=== PATIENT | female | born 1970 | race Caucasian/White ===

== ENCOUNTER 2023-06-30 15:07 | Emergency (ER) | payer OTHER, MEDICAID, SELFPAY ==
[2023-06-30 15:25] VITALS: BP 205/134; PULSE 98; RESP 16; TEMP 36.7; O2SAT 98; BMI 26.6
--- NOTE | 2023-06-30 16:35 | ED_ITS ---
HPI - Extremity Problem <Toni Lind PA-C - Last Filed: 06/30/23 16:45> General Chief complaint: Extremity Problem,Nontraumatic Stated complaint: lt hand, thinks she has a clot Time Seen by Provider: 06/30/23 16:11 Source: patient Mode of arrival: Ambulatory History of Present Illness HPI Narrative: 53-year-old female with hypertension presents to the ED with left wrist and forearm pain for 5 days. Patient states that she has been recently sick, sleeping in a recliner, suspects that she might have slept on her left arm. Patient states that she was concerned that she might have a blood clot based on looking on the Internet. Patient denies numbness, tingling, weakness. Patient denies any trauma. Related Data Previous Rx's Medication Instructions Recorded codeine 10 mg-guaifenesin 100 mg/5 5 ml PO Q4HP PRN #120 mL 09/14/16 mL oral liquid (Cheratussin AC) Allergies Allergy/AdvReac Type Severity Reaction Status Date / Time ketorolac [From TORADOL] Allergy Intermediate RED RASH Unverified 12/02/17 13:03 AND SWELLING Review of Systems <Toni Lind PA-C - Last Filed: 06/30/23 16:45> Constitutional Constitutional: Denies chills, Denies fatigue, Denies fever(s), Denies frequent falls, Denies lethargy and Denies weakness Eyes Eyes: Denies change in vision, Denies eye discharge, Denies irritation and Denies loss of vision ENT Ears, Nose, Mouth, and Throat: Denies change in voice, Denies dizziness, Denies neck pain, Denies sore throat and Denies throat swelling Cardiovascular Cardiovascular: Denies chest pain, Denies irregular heart rhythm, Denies lightheadedness, Denies palpitations, Denies dyspnea, Denies dyspnea on exertion and Denies orthopnea Respiratory Respiratory: Denies cough, Denies dyspnea, Denies dyspnea on exertion and Denies wheezing Gastrointestinal Gastrointestinal: Denies abdominal pain, Denies change in bowel habits, Denies diarrhea, Denies nausea and Denies vomiting Musculoskeletal Musculoskeletal: Denies neck pain and Denies numbness Comments: Left forearm, wrist pain Integumentary/Breasts Skin/Breast: Denies pruritus, Denies erythema, Denies rash and Denies wounds Neurologic Neurologic: Denies behavioral changes, Denies confusion, Denies dizziness, Denies frequent falls, Denies loss of vision, Denies numbness and Denies weakness Psychiatric Psychiatric: Denies anxiety, Denies behavioral changes, Denies confusion, Denies depression, Denies homicidal ideation and Denies suicidal ideation Endocrine Endocrine: Denies fatigue, Denies flushing and Denies palpitations Hematologic/Lymphatic Hematologic/Lymphatic: Denies easy bruising Allergic/Immunologic Allergic/Immunologic: Denies urticaria, Denies throat swelling and Denies wheezing Patient History <Toni Lind PA-C - Last Filed: 06/30/23 16:45> Social History Smoking Status: Current every day smoker Smoking Status: Current every day smoker tobacco type: cigarettes Substance Use Type: does not use Exam <Toni Lind PA-C - Last Filed: 06/30/23 16:45> Narrative Exam Narrative: Const General:?cooperative, healthy appearing and comfortable [facility] Head:?normal to inspection Ears:?hearing grossly normal bilaterally Nose:?external nose normal Face and sinus:?normal facial exam and sinuses nontender Mouth:?oral mucosae normal Throat:?posterior oropharynx normal Eyes General:?appearance normal, both eyes and all related structures Neck Neck:?normal visual inspection and no lymphadenopathy noted Resp Effort & Inspection:?normal respiratory effort Auscultation:?clear to auscultation bilaterally Cardio Rate:?regular rate Rhythm:?regular rhythm Musculoskeletal No erythema, swelling, tenderness to palpation, bruising, deformities noted on exam. Compartments are soft. There is full range of motion. Strength and sensation is intact. Patient is neurovascularly intact. Neuro General:?patient alert, patient awake and patient oriented x3 Initial Vital Signs Initial Vital Signs: Vital Signs Temperature 98.1 F 06/30/23 15:25 Pulse Rate 98 H 06/30/23 15:25 Respiratory Rate 16 06/30/23 15:25 Blood Pressure 205/134 H 06/30/23 15:25 Pulse Oximetry 98 06/30/23 15:25 Oxygen Delivery Method Room Air 06/30/23 15:25 <Lis Landis DO - Last Filed: 07/08/23 00:44> Initial Vital Signs Initial Vital Signs: Vital Signs Temperature 98.1 F 06/30/23 15:25 Pulse Rate 98 H 06/30/23 15:25 Respiratory Rate 16 06/30/23 15:25 Blood Pressure 205/134 H 06/30/23 15:25 Pulse Oximetry 98 06/30/23 15:25 Oxygen Delivery Method Room Air 06/30/23 15:25 Course <Toni Lind PA-C - Last Filed: 06/30/23 16:45> Vital Signs Vital signs: Vital Signs - 8 hr 06/30/23 15:25 Temperature 98.1 F Pulse Rate 98 H Respiratory Rate 16 Blood Pressure 205/134 H Pulse Oximetry 98 Oxygen Delivery Method Room Air <Lis Koby Landis DO - Last Filed: 07/08/23 00:44> Vital Signs Vital signs: Vital Signs - 8 hr 06/30/23 15:25 Temperature 98.1 F Pulse Rate 98 H Respiratory Rate 16 Blood Pressure 205/134 H Pulse Oximetry 98 Oxygen Delivery Method Room Air MDM - Extremity (Nontraumatic) <Toni Lind PA-C - Last Filed: 06/30/23 16:45> MDM Narrative Medical decision making narrative: 53-year-old female with hypertension presents to the ED with left wrist and forearm pain for 5 days. History and physical exam is most consistent with a musculoskeletal sprain/strain from sleeping on that arm. Patient is neurovascularly intact with good range of motion. Recommend lidocaine patches, heat packs, Advil cause symptom relief. Recommend follow-up with the PCP as soon as possible. Patient has had an elevated blood pressure for some time now according to the patient and is not on any medications. Recommend follow-up with PCP for further evaluation. ED return precautions discussed with patient. Patient verbalized understanding. Medical records reviewed: Yes Discharge Plan Departure Patient Disposition: Home Clinical Impression: Arm pain Qualifiers: Laterality: left Qualified Code(s): M79.602 - Pain in left arm Instructions: DI for Arm Pain Activity Restrictions/Additional Instructions: You were evaluated in the ED today for left arm pain. It appears that your pain is from a musculoskeletal sprain/strain from sleeping on it. You may apply lidocaine patches, take Advil 600 mg 3 times a day with food, apply heat packs. Please follow-up with your PCP as soon as possible. Return to the ED if your worsening symptoms, numbness, tingling, weakness. Prescriptions: No Action codeine-guaifenesin [Cheratussin AC] 118 ML liquid 5 ml PO Q4HP PRNQty: 120 0RF Stand Alone Forms: Patient Portal/API ED Sign-out <Lis Landis, - Last Filed: 07/08/23 00:44> Cosign ED Attending Cosignature Attestation: I was immediately available in the department for consultation.
[2023-06-30 16:50] VITALS: BP 182/121; PULSE 91; RESP 18; O2SAT 99
== END 2023-06-30 16:51 | disposition home or self-care (01) ==
PROVIDERS: Emergency Provider Student in an Organized Health Care Education/Training Program
DX: M25.532 Pain in left wrist (principal); M79.632 Pain in left forearm
CPT/HCPCS: 99281; 99282

== ENCOUNTER 2024-08-07 16:22 | Emergency (ER) | payer OTHER, SELFPAY ==
[2024-08-07] VITALS (7 sets, daily range): BP systolic 176–204; BP diastolic 118–133; PULSE 93–97; RESP 16; TEMP 36.9; O2SAT 98–100; BMI 29.5
--- NOTE | 2024-08-07 18:23 | DI.RAD.S_ITS ---
PROCEDURE: XR KNEE LT 3V INDICATIONS: Left knee pain TECHNIQUE: 3 views of the knee were acquired. COMPARISON: None. FINDINGS: Bones: No fractures or dislocations. No suspicious bony lesions. Soft tissues: No joint effusion. No suspicious soft tissue calcifications. IMPRESSION: No acute bony abnormality or significant effusion. Dictated by: Sanjuana Quevedo M.D. on 08/07/2024 at 18:00 Approved by: Sanjuana Quevedo M.D. on 08/07/2024 at 18:01
--- NOTE | 2024-08-07 18:23 | ED.EXTPRO ---
HPI - Extremity Problem General Chief complaint: Extremity Problem,Nontraumatic Stated complaint: rt knee px traveling up the leg Time Seen by Provider: 08/07/24 17:55 Source: patient Mode of arrival: Family Vehicle History of Present Illness HPI Narrative: Patient was a 54-year-old female who is here for evaluation of left knee discomfort. She has had the left knee discomfort for the past month although over the past couple days it has now started radiating up the inside of her left leg. No specific trauma. No fevers. No redness. Has not tried anything for symptoms prior to arrival. She denies chest pain or shortness of breath. She was hypertensive. She states she has been on medications in the past but nothing currently. She was not have a primary care doctor. Related Data Previous Rx's Medication Instructions Recorded codeine 10 mg-guaifenesin 100 mg/5 5 ml PO Q4HP PRN #120 mL 09/14/16 mL oral liquid (Cheratussin AC) lisinopril 10 mg tablet 10 mg PO DAILY #30 tabs 08/07/24 Allergies Allergy/AdvReac Type Severity Reaction Status Date / Time ketorolac [From TORADOL] Allergy Intermediate RED RASH Unverified 12/02/17 13:03 AND SWELLING Review of Systems Review of Systems ROS Unobtainable: All systems reviewed & are unremarkable except as noted in HPI and below Patient History Social History Smoking Status: Current every day smoker Smoking Status: Current every day smoker tobacco type: cigarettes Exam Initial Vital Signs Initial Vital Signs: Vital Signs Temperature 98.4 F 08/07/24 16:27 Pulse Rate 97 H 08/07/24 16:27 Respiratory Rate 16 08/07/24 16:27 Blood Pressure 184/133 H 08/07/24 16:27 Pulse Oximetry 99 08/07/24 16:27 Oxygen Delivery Method Room Air 08/07/24 16:27 Const General: cooperative, comfortable and No ill appearing HENMT Head: normal to inspection and normocephalic Skin General: no rashes or lesions noted Neuro Sensory Exam: no sensory deficits noted Extrem Other: Mild swelling noted on the medial aspect of the right knee. No effusion. No tenderness over the patellar tendon or quadriceps tendon. No tenderness over the hamstrings. She does have some tenderness along the medial aspect of her left leg. Her left calf is unremarkable. Left ankle is unremarkable. Left hip is unremarkable. Course Orders Ordered: ED Orders 08/07/24 18:23 XR knee LT 3V Stat 08/07/24 18:57 Basic Metabolic Panel Stat Complete Blood Count AUTO DIFF Stat D Dimer Stat Vital Signs Vital signs: Vital Signs - 8 hr 08/07/24 16:27 08/07/24 17:59 08/07/24 18:00 Temperature 98.4 F Pulse Rate 97 H Pulse Rate [Bilateral Dorsalis Pedis] Respiratory Rate 16 Blood Pressure 184/133 H 198/124 H 204/130 H Pulse Oximetry 99 Oxygen Delivery Method Room Air 08/07/24 18:01 08/07/24 18:24 08/07/24 18:30 Temperature Pulse Rate 96 H 93 H Pulse Rate [Bilateral Dorsalis Pedis] 94 H Respiratory Rate Blood Pressure Pulse Oximetry 100 98 Oxygen Delivery Method 08/07/24 18:30 08/07/24 19:00 08/07/24 19:00 Temperature Pulse Rate 93 H Pulse Rate [Bilateral Dorsalis Pedis] Respiratory Rate Blood Pressure 198/133 H 176/118 H Pulse Oximetry 99 Oxygen Delivery Method Room Air MDM - Extremity (Nontraumatic) Lab Data 08/07/24 18:57 08/07/24 18:57 Labs: Lab Results 08/07/24 Range/Units 18:57 WBC 10.7 (4.5-11.0) X10^3/uL RBC 4.66 (4.0-5.2) X10^6/uL Hgb 14.4 (12.0-16.0) g/dL Hct 43.0 (36-46) % MCV 92.4 (80-100) fL MCH 31.0 (26-34) PG MCHC 33.5 (30-36) % RDW 13.3 (11.6-14.8) % Plt Count 299 (150-400) X10^3/uL Neut % (Auto) 50.4 (50-75) % Lymph % (Auto) 31.9 (25-40) % [place] % (Auto) 8.3 (3-14) % Eos % (Auto) 8.4 H (2-4) % Baso % (Auto) 1.0 (0-2) % Neut # (Auto) 5400 (7167-4168) /uL Lymph # (Auto) 3400 (8518-3311) /uL [place] # (Auto) 900 (0-900) /uL Eos # (Auto) 900 H (0-450) /uL Baso # (Auto) 100 (0-100) /uL D-Dimer 381 (<500) ng/ml Sodium 139 (137-145) mmol/L Potassium 3.8 (3.4-5.1) mmol/L Chloride 108 H (98-107) mmol/L Carbon Dioxide 27 (22-32) mmol/L BUN 15 (7-17) mg/dL Creatinine 1.10 H (0.52-1.04) mg/dL Estimated GFR 59 L (>60) mL/min BUN/Creatinine Ratio 13.6 (6-22) Glucose 99 (70-100) mg/dL Calcium 9.0 (8.4-10.2) mg/dL Imaging Data Extremity x-ray #1: Radiologist's Impression: PROCEDURE: XR KNEE LT 3V INDICATIONS: Left knee pain TECHNIQUE: 3 views of the knee were acquired. COMPARISON: None. FINDINGS: Bones: No fractures or dislocations. No suspicious bony lesions. Soft tissues: No joint effusion. No suspicious soft tissue calcifications. IMPRESSION: No acute bony abnormality or significant effusion. MDM Narrative Medical decision making narrative: Patient does have a mild swelling in the medial aspect of the right knee. Her exam is not consistent with cellulitis/septic joint/gout. She does not have any trauma. X-ray is unremarkable. Is a negative D-dimer. Low suspicion for DVT. I do suspect that this is an arthritis flare just based on her presentation. She was also hypertensive but is asymptomatic. She has been on lisinopril in the past but does not remember the dose. Will start her on a low dose of lisinopril. We discussed the importance of taking her blood pressure at home. She was given a phone number to contact help establish a primary doctor. We discussed conservative measures for her left knee. She was given return precautions. She expressed understanding and agreement. Discharge Plan Departure Patient Disposition: Home Clinical Impression: Arthritis, Hypertension Instructions: Arthritis (Alternative Therapy), Essential Hypertension, DI for Arthritis Activity Restrictions/Additional Instructions: You can contact [phone] during business hours to help you establish a primary doctor. I do recommend that you continue to take your blood pressure at home like we discussed. I recommend ice on your left knee. Return to the emergency department for new or worsening symptoms Prescriptions: New lisinopril 10 mg tablet 10 mg PO DAILY Qty: 30 2RF No Action codeine-guaifenesin [Cheratussin AC] 118 ML liquid 5 ml PO Q4HP PRNQty: 120 0RF Referrals: Miscellaneous,Doctor, [Primary Care Provider] - Stand Alone Forms: Patient Portal/API/Survey
[2024-08-07 19:10] LABS: Add Manual Diff / Slide Review NO; Basophils Absolute Auto 100 /uL (0-100); Eosinophils Absolute Auto 900 /uL (0-450); Eosinophils Percent Auto 8.4 % (2-4); Hemoglobin 14.4 g/dL (12.0-16.0); Lymphocytes Absolute Auto 3400 /uL (1100-4500); Lymphocytes Percent Auto 31.9 % (25-40); Mean Corpuscular HGB Conc 33.5 % (30-36); Mean Corpuscular Volume 92.4 fL (80-100); Monocytes Absolute Auto 900 /uL (0-900); Monocytes Percent Auto 8.3 % (3-14); Neutrophils Absolute Auto 5400 /uL (1500-7000); Neutrophils Percent Auto 50.4 % (50-75); Platelet Count 299 X10^3/uL (150-400); Red Blood Cell Count 4.66 X10^6/uL (4.0-5.2); Red Cell Distribution Width 13.3 % (11.6-14.8); White Blood Cell Count 10.7 X10^3/uL (4.5-11.0)
[2024-08-07 19:16] LABS: D Dimer 381 ng/ml (<500)
[2024-08-07 19:18] LABS: BUN Creatinine Ratio 13.6 (6-22); Blood Urea Nitrogen 15 mg/dL (7-17); Carbon Dioxide 27 mmol/L (22-32); Chloride 108 mmol/L (98-107); Estimated Glomerular Filt Rate 59 mL/min (>60); Glucose 99 mg/dL (70-100); HEMOLYSIS < 15 (0-50); Potassium 3.8 mmol/L (3.4-5.1); Sodium 139 mmol/L (137-145)
== END 2024-08-07 19:34 | disposition home or self-care (01) ==
PROVIDERS: Emergency Provider Emergency Medicine
DX: I10 Essential (primary) hypertension (principal); M17.12 Unilateral primary osteoarthritis, left knee
CPT/HCPCS: 36415; 73562; 80048; 85025; 85379; 99281; 99283